=== PATIENT | male | born 2000 | race Caucasian/White ===

== ENCOUNTER 2021-07-28 16:09 | Emergency (ER) | payer BC ==
[2021-07-28 17:23] LABS: HEMOGLOBIN 15.8 gm/dl (14.0-17.5); RED BLOOD COUNT 5.3 M/UL (4.20-5.50); WHITE BLOOD COUNT 13.5 K/UL (4.5-11.0)
[2021-07-28 17:51] LABS: BUN/CREATININE RATIO 11 (0-10)
[2021-07-29] MEDS ORDERED: ZOFRAN ODT 4 MG4 MG PO (00:05)
[2021-07-29] MEDS ORDERED: TAMIFLU75 MG PO (00:05)
== END 2021-07-29 00:11 | disposition home or self-care (01) ==
LOC: ER1 16:09
PROVIDERS: Emergency Medicine
DX: R55 Syncope and collapse (principal); J10.1 Influenza due to other identified influenza virus with other respiratory manifestations; Z20.822 Contact with and (suspected) exposure to COVID-19; R11.0 Nausea; Z88.0 Allergy status to penicillin
CPT/HCPCS: 0240U; 70450; 71045; 80053; 81001; 82550; 82553; 82962; 84484; 85025; 93005; 99284